=== PATIENT | male | born 1980 | race Caucasian/White ===

== ENCOUNTER 2017-05-05 15:00 | Day surgery (SDC) | payer BC ==
[~2017-05-05] VITALS: Ht 185.4 cm; Wt 104.3 kg
[~2017-05-05 15:00] MED LIST: FLEXERIL5 MG PO; INDOMETHACIN50 MG PO; LORTAB 5-325 M1 EACH PO; LYRICA50 MG PO; LYRICA75 MG PO; MEDROL DOSEPAK4 MG PO; MOTRIN600 MG PO; NAPROSYN500 MG PO; NOHOMEMEDS; NORCO 5/3251 TABLET PO; OMEPRAZOLE40 M1 PO; PERCOCET 5/31 TABLET PO; PERCOCET 7.51 TABLET PO; PRILOSEC20 MG PO; PRILOSEC40 MG PO; PROAIR HFA8.5 GM IH; RELAFEN500 M1 PO; ZOFRAN4 MG PO
== END 2017-05-05 16:20 | disposition home or self-care (01) ==
LOC: PAIN 15:00
DX: M47.26 Other spondylosis with radiculopathy, lumbar region (principal); M79.1 Myalgia; M51.16 Intervertebral disc disorders with radiculopathy, lumbar region; I10 Essential (primary) hypertension; E66.9 Obesity, unspecified; Z68.30 Body mass index [BMI] 30.0-30.9, adult; Z87.891 Personal history of nicotine dependence
CPT/HCPCS: J1030; J2250; J3010; S0020

== ENCOUNTER 2017-05-12 13:03 | Day surgery (SDC) | payer BC ==
[~2017-05-12] VITALS: Ht 185.4 cm; Wt 104.3 kg
[2017-05-12] MEDS ORDERED: FLEXERIL10 MG PO (13:29)
== END 2017-05-12 15:30 | disposition home or self-care (01) ==
LOC: PAIN 13:03 → SDC 14:00 → PAIN 14:00
DX: M47.26 Other spondylosis with radiculopathy, lumbar region (principal); M51.16 Intervertebral disc disorders with radiculopathy, lumbar region; M79.1 Myalgia; I10 Essential (primary) hypertension; E66.9 Obesity, unspecified; Z68.30 Body mass index [BMI] 30.0-30.9, adult; Z87.891 Personal history of nicotine dependence; Z79.891 Long term (current) use of opiate analgesic
CPT/HCPCS: J1030; J2250; J3010; S0020